=== PATIENT | male | born 1960 | race Caucasian/White ===

== ENCOUNTER 2023-11-11 10:56 | Emergency (ER) | payer BC ==
[2023-11-11] VITALS (7 sets, daily range): BP systolic 165–177; BP diastolic 97–109
[~2023-11-11] VITALS: Ht 177.8 cm; Wt 70.3 kg
[2023-11-11] MEDS ORDERED: METHOCARBAMOL500 MG PO (15:03)
== END 2023-11-11 15:24 | disposition home or self-care (01) | DRG 563 ==
LOC: ED 10:56
DX: S39.012A Strain of muscle, fascia and tendon of lower back, initial encounter (principal); X50.0XXA Overexertion from strenuous movement or load, initial encounter